=== PATIENT | female | born 1960 | race African-American/Black ===

== ENCOUNTER 2021-04-12 23:18 | Emergency (ER) | payer MEDICAID ==
[~2021-04-12] VITALS: Ht 170.2 cm; Wt 84.0 kg
[2021-04-13] MEDS ORDERED: KETOROLAC 60MG/2ML VIAL IM ONE (00:30)
[2021-04-13] MEDS ORDERED: TRAMADOL 50MG TABLET PO ONE (01:45)
[2021-04-13 01:59] VITALS: BP 152/86
== END 2021-04-13 02:07 | disposition home or self-care (01) ==
LOC: ER 23:18
DX: E11.42 Type 2 diabetes mellitus with diabetic polyneuropathy (principal); Z79.4 Long term (current) use of insulin; Z87.2 Personal history of diseases of the skin and subcutaneous tissue
CPT/HCPCS: 96372; 99283; J1885

== ENCOUNTER 2022-03-13 11:19 | Inpatient (IN) | payer MEDICAID ==
[~2022-03-13] VITALS: Ht 165.1 cm; Wt 87.5 kg
[2022-03-13] MEDS ORDERED: ACETAMINOPHEN 325MG TABLET PO NR (11:32)
[2022-03-13] MEDS ORDERED: CEFTRIAXONE 1 G PREMIX 50 ML IV NR (11:45)
[2022-03-13] MEDS ORDERED: SODIUM CHLORIDE 0.9% 1,000 ML IV ONE (11:45)
[2022-03-13 12:32] LABS: HEMATOCRIT. 37.9 % (36.0-48.0); HEMOGLOBIN. 12.7 g/dL (12.0-16.0); MEAN CORPUSCULAR HEMOGLOBIN 30.4 pg (28.0-32.0); MEAN PLATELET VOLUME 9.1 fl (7.4-10.4); PLATELET 258 x1000/uL (130-400); RED BLOOD CELL COUNT 4.16 mill/uL (4.2-5.4); RED CELL DISTRIBUTION WIDTH 13.5 % (11.6-14.6)
[2022-03-13 12:35] LABS: CHLORIDE 105 mEq/L (98-107)
[2022-03-13 13:30] LABS: PLATELET ESTIMATE NORMAL
[2022-03-13] MEDS ORDERED: VANCOMYCIN 1G PREMIX 200 ML IV SCH (14:00)
[2022-03-13] MEDS ORDERED: VANCOMYCIN 1,000 MG in DEXT 5% WATER 250 ML IV NR (15:00)
[2022-03-13] MEDS: CEFEPIME 1,000 MG in DEXTROSE 5% WATER 50 ML IV SCH (22:00)
[2022-03-13 22:01] VITALS: BP 118/63
[2022-03-13] MEDS ORDERED: METF500S7 PO (22:41)
[2022-03-13] MEDS ORDERED: GABA800T97 PO (22:41)
[2022-03-13] MEDS ORDERED: HYDR-4001 PO (22:41)
[2022-03-14] MEDS ORDERED: INSU300I3 SQ (00:07)
[2022-03-14] MEDS: CEFEPIME 1,000 MG in DEXTROSE 5% WATER 50 ML IV SCH ×3 (03:27→17:54)
[2022-03-14 04:00] VITALS: BP 130/70
[2022-03-14 08:00] VITALS: BP 117/70
[2022-03-14] MEDS ORDERED: VANCOMYCIN 1GM PMX (XELLIA) 200 ML IV SCH (10:00)
[2022-03-14] MEDS ORDERED: LIDOCAINE HCL 1% 10 MG/ML 10ML VIAL INJ NR (11:00)
[2022-03-14] MEDS ORDERED: DEXTROSE 50% WATER 50ML SYRINGE IV PRN (11:45)
[2022-03-14 12:00] VITALS: BP 140/77
[2022-03-14] MEDS ORDERED: DIPHENHYDRAMINE 50MG CAPSULE PO NR (12:05)
[2022-03-14] MEDS: BLOOD SUGAR DIAGNOSTIC STRIP TEST SCH ×3 (12:19→21:31)
[2022-03-14] MEDS: INSULIN LISPRO 100 UNITS/ML SUBCUT SCH ×3 (12:39→21:48)
[2022-03-14] MEDS ORDERED: ACETAMINOPHEN 325MG TABLET PO PRN (12:45)
[2022-03-14] MEDS: HYDROCODONE/ACETAMINOPHEN 5/325MG TABLET PO PRN ×2 (14:38→21:12)
[2022-03-14] MEDS ORDERED: NALOXONE HCL 0.4MG/ML VIAL IV PRN (14:45)
[2022-03-14 16:00] VITALS: BP 142/70
[2022-03-14] MEDS: SILVER SULFADIAZINE 1% CREAM 25GM TOP SCH (17:43)
[2022-03-14] MEDS: GABAPENTIN 400MG CAPSULE PO SCH (17:46)
[2022-03-14] MEDS: MORPHINE SULFATE 2 MG/ML CPJ (NOT FOR IM USE) IV PRN ×2 (18:21→23:29)
[2022-03-14 20:00] VITALS: BP 140/61
[2022-03-14] MEDS ORDERED: LINEZOLID 600 MG PREMIX 300 ML IV SCH (20:45)
[2022-03-14] MEDS: LINEZOLID 600 MG PREMIX 300 ML IV SCH (21:49)
[2022-03-15] VITALS: BP 146/65
[2022-03-15 04:00] VITALS: BP 110/57
[2022-03-15] MEDS: GABAPENTIN 400MG CAPSULE PO SCH ×2 (06:02→18:18)
[2022-03-15] MEDS: CEFEPIME 1,000 MG in DEXTROSE 5% WATER 50 ML IV SCH ×2 (06:02→18:18)
[2022-03-15] MEDS: BLOOD SUGAR DIAGNOSTIC STRIP TEST SCH ×4 (06:29→20:21)
[2022-03-15] MEDS: MORPHINE SULFATE 2 MG/ML CPJ (NOT FOR IM USE) IV PRN ×2 (06:39→18:18)
[2022-03-15 08:00] VITALS: BP 112/68
[2022-03-15] MEDS: INSULIN LISPRO 100 UNITS/ML SUBCUT SCH ×4 (08:45→20:22)
[2022-03-15] MEDS: LINEZOLID 600 MG PREMIX 300 ML IV SCH ×2 (08:46→20:21)
[2022-03-15] MEDS: SILVER SULFADIAZINE 1% CREAM 25GM TOP SCH (08:47)
[2022-03-15 11:01] LABS: BASOPHILS % 0.9 % (0.0-2.0); EOSINOPHILS % 1.8 % (0.0-5.0); HEMATOCRIT. 36.5 % (36.0-48.0); HEMOGLOBIN. 12.4 g/dL (12.0-16.0); LYMPHOCYTES % 18.4 % (20.0-50.0); MEAN CORPUSCULAR HEMOGLOBIN 30.5 pg (28.0-32.0); MEAN CORPUSCULAR VOLUME 89.7 fL (81.0-99.0); MEAN PLATELET VOLUME 9.8 fl (7.4-10.4); MONOCYTES % 9.9 % (2.0-8.0); PLATELET 253 x1000/uL (130-400); RED BLOOD CELL COUNT 4.07 mill/uL (4.2-5.4); RED CELL DISTRIBUTION WIDTH 13.4 % (11.6-14.6)
[2022-03-15 12:00] VITALS: BP 122/72
[2022-03-15 12:00] LABS: CHLORIDE 104 mEq/L (98-107)
[2022-03-15] MEDS: HYDROCODONE/ACETAMINOPHEN 5/325MG TABLET PO PRN (15:53)
[2022-03-15 16:00] VITALS: BP 136/76
[2022-03-15 20:00] VITALS: BP 109/49
[2022-03-16] VITALS: BP 113/52
[2022-03-16 04:00] VITALS: BP 118/55
[2022-03-16] MEDS: CEFEPIME 1,000 MG in DEXTROSE 5% WATER 50 ML IV SCH ×2 (06:28→18:04)
[2022-03-16] MEDS: BLOOD SUGAR DIAGNOSTIC STRIP TEST SCH ×3 (06:28→17:11)
[2022-03-16] MEDS: GABAPENTIN 400MG CAPSULE PO SCH ×2 (06:28→18:03)
[2022-03-16 08:00] VITALS: BP 144/73
[2022-03-16] MEDS ORDERED: LINEZOLID 600MG TABLET PO SCH (09:00)
[2022-03-16] MEDS ORDERED: ENOXAPARIN 40MG/0.4ML SYR SUBCUT SCH (09:00)
[2022-03-16] MEDS: SILVER SULFADIAZINE 1% CREAM 25GM TOP SCH (09:35)
[2022-03-16] MEDS: INSULIN LISPRO 100 UNITS/ML SUBCUT SCH ×3 (09:39→18:06)
[2022-03-16 12:00] VITALS: BP 140/70
[2022-03-16 16:00] VITALS: BP 150/82
[2022-03-16] MEDS ORDERED: LINE600T11 MT (18:37)
[2022-03-16] MEDS ORDERED: LEVO750T46 MT (18:37)
[2022-03-16 21:00] VITALS: BP 120/61
== END 2022-03-16 21:45 | disposition home or self-care (01) | DRG 710 ==
LOC: ER 12:18 → EDBEDREQTM 15:22 → EDBEDREQ 15:22 → ENRESERV 19:32 → 6WST 21:36
PROVIDERS: ADMIT Internal Medicine; ATTEND Internal Medicine
PROC: 0KBW0ZZ Excision of Left Foot Muscle, Open Approach (ICD-10-PCS; principal; 2022-03-14)
PROC: 0KBV0ZZ Excision of Right Foot Muscle, Open Approach (ICD-10-PCS; 2022-03-14)
PROC: 0H9NXZZ Drainage of Left Foot Skin, External Approach (ICD-10-PCS; 2022-03-14)
DX: A41.59 Other Gram-negative sepsis (principal); E11.621 Type 2 diabetes mellitus with foot ulcer; E11.40 Type 2 diabetes mellitus with diabetic neuropathy, unspecified; L97.519 Non-pressure chronic ulcer of other part of right foot with unspecified severity; L02.612 Cutaneous abscess of left foot; I10 Essential (primary) hypertension; L97.529 Non-pressure chronic ulcer of other part of left foot with unspecified severity; Z20.822 Contact with and (suspected) exposure to COVID-19; M19.90 Unspecified osteoarthritis, unspecified site; L29.9 Pruritus, unspecified; K14.6 Glossodynia; T36.8X5A Adverse effect of other systemic antibiotics, initial encounter; Z79.4 Long term (current) use of insulin; Z79.899 Other long term (current) drug therapy; Y92.89 Other specified places as the place of occurrence of the external cause
CPT/HCPCS: 36415; 71045; 73630; 80048; 80053; 82962; 83036; 83605; 83880; 84145; 84484; 85025; 87070; 87077; 87186; 87426; 93005; 99291; C1893; J0692; J1650; J1815; J2020; J2270; J3370; J3490; J7030; J7060; Q0163